=== PATIENT | male | born 1985 | race Caucasian/White ===

== ENCOUNTER 2021-07-07 22:30 | Inpatient (IN) | payer MEDICAID ==
[~2021-07-07] VITALS: Ht 172.7 cm; Wt 108.4 kg
[2021-07-07] MEDS ORDERED: MORPHINE SULFATE 4 MG/ML CPJ (NOT FOR IM USE) IV STA (23:00)
[2021-07-07] MEDS ORDERED: ONDANSETRON HCL 4MG/2ML INJ IV STA (23:00)
[2021-07-07] MEDS ORDERED: SODIUM CHLORIDE 0.9% 1,000 ML IV ONE (23:00)
[2021-07-07 23:34] LABS: BASOPHILS % 0.6 % (0.0-2.0); EOSINOPHILS % 0.7 % (0.0-5.0); HEMATOCRIT. 43.7 % (42.0-52.0); HEMOGLOBIN. 14.8 g/dL (14.0-18.0); LYMPHOCYTES % 28.6 % (20.0-50.0); MEAN CORPUSCULAR HEMOGLOBIN 27.8 pg (28.0-32.0); MEAN CORPUSCULAR VOLUME 82.1 fL (80.0-94.0); MEAN PLATELET VOLUME 8.8 fl (7.4-10.4); MONOCYTES % 5.4 % (2.0-8.0); NEUTROPHILS % 64.7 % (40.0-76.0); PLATELET 278 x1000/uL (130-400); RED BLOOD CELL COUNT 5.33 mill/uL (4.7-6.1); RED CELL DISTRIBUTION WIDTH 14.9 % (11.6-14.6)
[2021-07-07 23:36] LABS: CHLORIDE 104 mEq/L (98-107)
[2021-07-07] MEDS ORDERED: MORPHINE SULFATE 2 MG/ML CPJ (NOT FOR IM USE) IV STA (23:54)
[2021-07-08] VITALS (36 sets, daily range): BP systolic 88–164; BP diastolic 40–108
[2021-07-08] MEDS ORDERED: ENOXAPARIN 80MG/0.8ML SYR SUBCUT ONE (00:30)
[2021-07-08] MEDS ORDERED: ASPIRIN 325MG TABLET PO ONE (00:30)
[2021-07-08] MEDS ORDERED: ENOXAPARIN 100MG/ML SYR SUBCUT ONE (00:45)
[2021-07-08] MEDS ORDERED: ONDANSETRON HCL 4MG/2ML INJ IV PRN (02:00)
[2021-07-08] MEDS ORDERED: MAGNESIUM/ALUMINUM HYDROXIDE/SIMETHICONE 30ML UDC PO PRN (02:00)
[2021-07-08] MEDS ORDERED: DEXTROSE 50% WATER 50ML SYRINGE IV PRN (02:00)
[2021-07-08] MEDS ORDERED: DIPHENHYDRAMINE 50MG/ML VIAL IV PRN (02:00)
[2021-07-08] MEDS ORDERED: ZOLPIDEM TARTRATE 5MG TABLET PO PRN (02:00)
[2021-07-08] MEDS ORDERED: MORPHINE SULFATE 2 MG/ML CPJ (NOT FOR IM USE) IV PRN (02:00)
[2021-07-08] MEDS ORDERED: ACETAMINOPHEN 325MG TABLET PO PRN ×4 (02:00→16:45)
[2021-07-08] MEDS: CEPHALEXIN 250MG CAPSULE PO SCH ×4 (03:00→23:00)
[2021-07-08] MEDS ORDERED: SODIUM CHLORIDE 0.9% INJ 3ML FLUSH IVF SCH (06:00)
[2021-07-08] MEDS: OMEPRAZOLE 20MG CAPSULE EXTENDED RELEASE PO SCH ×2 (07:50→21:24)
[2021-07-08] MEDS: INSULIN LISPRO 100 UNITS/ML SUBCUT SCH ×4 (08:20→21:00)
[2021-07-08] MEDS: BLOOD SUGAR DIAGNOSTIC STRIP TEST SCH ×4 (09:00→21:00)
[2021-07-08] MEDS ORDERED: CLOPIDOGREL 75MG TABLET PO SCH (09:00)
[2021-07-08] MEDS: ASPIRIN 81MG EC TABLET PO SCH (09:00)
[2021-07-08] MEDS ORDERED: NICARDIPINE 100MCG/ML 10ML VIAL (CATH LAB) IV ONE (10:16)
[2021-07-08] MEDS ORDERED: NITROGLYCERIN 50MCG/ML 10ML VIAL (CATH LAB) IV ONE (10:16)
[2021-07-08] MEDS ORDERED: NALOXONE HCL 0.4MG/ML VIAL IV PRN (10:45)
[2021-07-08] MEDS ORDERED: HEPARIN 1000 UNITS/ML 10ML ONE (13:50)
[2021-07-08] MEDS ORDERED: IODIXANOL 320MG/ML 100 ML BOTTLE IV ONE (13:50)
[2021-07-08] MEDS ORDERED: FENTANYL CITRATE/PF 50MCG/ML 2ML VIAL ONE (13:50)
[2021-07-08] MEDS ORDERED: VERAPAMIL HCL 2.5 MG/1 ML 2ML VIAL IV ONE (13:50)
[2021-07-08] MEDS ORDERED: MIDAZOLAM HCL 2 MG/2 ML VIAL ONE (13:51)
[2021-07-08] MEDS ORDERED: LIDOCAINE HCL 1% 30ML VIAL (10MG/ML) ONE (13:59)
[2021-07-08] MEDS ORDERED: IOHEXOL-300 100 ML BOTTLE ONE (14:23)
[2021-07-08] MEDS ORDERED: EPTIFIBATIDE 100 ML IV ONE (14:44)
[2021-07-08] MEDS ORDERED: EPTIFIBATIDE 2 MG/ML 10ML VIAL IV ONE (14:45)
[2021-07-08] MEDS ORDERED: HEPARIN 5000 UNITS/ML VIAL IV PRN (15:30)
[2021-07-08] MEDS ORDERED: ATROPINE SULFATE 1MG/10ML SYR IV PRN (15:30)
[2021-07-08] MEDS ORDERED: HEPARIN 25,000 UNITS PREMIX 250 ML IV PRN (15:30)
[2021-07-08] MEDS: NITROGLYCERIN 50MG PREMIX 250 ML IV SCH (16:40)
[2021-07-08] MEDS ORDERED: NITROGLYCERIN 0.4MG TABLET SL SL PRN (16:45)
[2021-07-08] MEDS ORDERED: HEPARIN BOLUS PRN aPTT <30 IV (16:45)
[2021-07-08] MEDS ORDERED: CHLORHEXIDINE GLUCONATE 4% EXTERNAL USE TOP SCH ×2 (16:45→21:00)
[2021-07-08] MEDS ORDERED: ALPRAZOLAM 0.25 MG TABLET PO PRN (16:45)
[2021-07-08] MEDS ORDERED: HEPARIN BOLUS PRN aPTT 30-44 IV (16:45)
[2021-07-08] MEDS ORDERED: HEPARIN 60 UNITS/KG BOLUS IV SCH (16:45)
[2021-07-08] MEDS ORDERED: EPTIFIBATIDE 100 ML IV SCH (17:30)
[2021-07-08 17:37] LABS: BASOPHILS % 0.4 % (0.0-2.0); EOSINOPHILS % 1.4 % (0.0-5.0); HEMATOCRIT. 40.1 % (42.0-52.0); HEMOGLOBIN. 13.3 g/dL (14.0-18.0); LYMPHOCYTES % 30.9 % (20.0-50.0); MEAN CORPUSCULAR HEMOGLOBIN 27.6 pg (28.0-32.0); MEAN CORPUSCULAR VOLUME 83.3 fL (80.0-94.0); MEAN PLATELET VOLUME 8.8 fl (7.4-10.4); MONOCYTES % 7.5 % (2.0-8.0); NEUTROPHILS % 59.8 % (40.0-76.0); PLATELET 249 x1000/uL (130-400); RED BLOOD CELL COUNT 4.81 mill/uL (4.7-6.1); RED CELL DISTRIBUTION WIDTH 14.6 % (11.6-14.6)
[2021-07-08 17:47] LABS: CHLORIDE 108 mEq/L (98-107); PARTIAL THROMBOPLASTIN TIME 39.3 sec (23.4-31.0); PROTHROMBIN TIME 10.7 sec (9.6-11.0)
[2021-07-08] MEDS: HEPARIN 25,000 UNITS PREMIX 250 ML IV SCH ×2 (17:52→19:03)
[2021-07-08] MEDS: EPTIFIBATIDE 100 ML IV SCH (19:27)
[2021-07-08] MEDS ORDERED: ASCORBIC ACID 500 MG TABLET PO SCH (21:00)
[2021-07-08] MEDS ORDERED: ATORVASTATIN CALCIUM 40MG TABLET PO SCH (21:00)
[2021-07-08] MEDS ORDERED: BISACODYL 10MG SUPP PR PRN (21:00)
[2021-07-08] MEDS ORDERED: DOCUSATE SODIUM 100MG CAPSULE PO SCH (21:00)
[2021-07-08] MEDS: ALLOPURINOL 300 MG TABLET PO SCH (21:23)
[2021-07-08] MEDS: SODIUM CHLORIDE 0.9% INJ 3ML FLUSH IVF SCH (22:06)
[2021-07-08] MEDS ORDERED: ENOXAPARIN 40MG/0.4ML SYR SUBCUT SCH (23:00)
[2021-07-09] VITALS (65 sets, daily range): BP systolic 83–187; BP diastolic 48–150
[2021-07-09] MEDS: EPTIFIBATIDE 100 ML IV SCH (01:15)
[2021-07-09] MEDS: ALLOPURINOL 300 MG TABLET PO SCH (05:38)
[2021-07-09] MEDS: CEPHALEXIN 250MG CAPSULE PO SCH ×2 (05:39→12:00)
[2021-07-09] MEDS: CHLORHEXIDINE GLUCONATE 4% EXTERNAL USE TOP SCH ×2 (05:41→09:33)
[2021-07-09] MEDS: SODIUM CHLORIDE 0.9% INJ 3ML FLUSH IVF SCH ×3 (05:41→22:28)
[2021-07-09 06:52] LABS: CHLORIDE 109 mEq/L (98-107)
[2021-07-09] MEDS ORDERED: NICARDIPINE 40MG/200ML PREMIX 200 ML IV SCH (07:00)
[2021-07-09] MEDS ORDERED: INSULIN REGULAR (DRIP) 100 UNITS in SODIUM CHLORIDE 0.9% 99 ML IV NR (07:00)
[2021-07-09] MEDS ORDERED: DOPAMINE 400 MG PREMIX 250 ML IV NR (07:00)
[2021-07-09] MEDS ORDERED: AMINOCAPROIC ACID 5,000 MG in SODIUM CHLORIDE 0.9% 230 ML IV NR (07:00)
[2021-07-09] MEDS ORDERED: NOREPINEPHRINE 8 MG in DEXT 5% WATER 242 ML IV NR (07:00)
[2021-07-09] MEDS ORDERED: DEL NIDO ELECTROLYTE-S(PH 7.4) 1,000 ML IV NR ×2 (07:00)
[2021-07-09] MEDS ORDERED: PAPAVERINE HCL 180MG in SODIUM CHLORIDE 0.9% 24ML IV NR (07:00)
[2021-07-09] MEDS ORDERED: DOBUTAMINE 250MG PREMIX 250 ML IV NR (07:00)
[2021-07-09] MEDS ORDERED: CEFAZOLIN 2,000 MG in DEXT 5% WATER 100 ML IV NR (07:00)
[2021-07-09] MEDS ORDERED: EPINEPHRINE 5 MG in DEXT 5% WATER 245 ML IV NR (07:00)
[2021-07-09 07:26] LABS: BASOPHILS % 0.4 % (0.0-2.0); EOSINOPHILS % 1.9 % (0.0-5.0); HEMATOCRIT. 44.3 % (42.0-52.0); HEMOGLOBIN. 14.4 g/dL (14.0-18.0); LYMPHOCYTES % 41.1 % (20.0-50.0); MEAN CORPUSCULAR HEMOGLOBIN 28.1 pg (28.0-32.0); MEAN CORPUSCULAR VOLUME 86.1 fL (80.0-94.0); MEAN PLATELET VOLUME 8.9 fl (7.4-10.4); MONOCYTES % 8.6 % (2.0-8.0); PLATELET 219 x1000/uL (130-400); RED BLOOD CELL COUNT 5.14 mill/uL (4.7-6.1); RED CELL DISTRIBUTION WIDTH 14.8 % (11.6-14.6)
[2021-07-09] MEDS: BLOOD SUGAR DIAGNOSTIC STRIP TEST SCH ×14 (07:50→23:45)
[2021-07-09] MEDS: INSULIN LISPRO 100 UNITS/ML SUBCUT SCH ×2 (08:20→13:20)
[2021-07-09] MEDS: ASPIRIN 81MG EC TABLET PO SCH (09:33)
[2021-07-09] MEDS: OMEPRAZOLE 20MG CAPSULE EXTENDED RELEASE PO SCH (09:33)
[2021-07-09] MEDS ORDERED: BACITRACIN 15GM TUBE TOP ONE (09:43)
[2021-07-09] MEDS ORDERED: THROMBIN (BOVINE) 5000 UNITS/VIAL TOP ONE (09:44)
[2021-07-09] MEDS ORDERED: SODIUM CHLORIDE 0.9% INJ 10ML FLUSH IVF ONE (09:44)
[2021-07-09] MEDS ORDERED: SKIN ADHESIVE 0.7 GM EA TOP ONE (09:44)
[2021-07-09] MEDS ORDERED: POLYMYXIN B SULFATE 500000 UNITS/VIAL ONE (09:44)
[2021-07-09] MEDS ORDERED: HEPARIN 1000 UNITS/ML 10ML ONE ×3 (09:46→14:47)
[2021-07-09] MEDS ORDERED: LIDOCAINE HCL 2% 5ML SYRINGE IV ONE ×2 (09:46→16:49)
[2021-07-09] MEDS ORDERED: HEPARIN 10,000 UNITS/ML VIAL ONE ×2 (09:46→11:21)
[2021-07-09] MEDS ORDERED: CALCIUM CHLORIDE 1GM/10ML SYR IV ONE ×2 (09:46→16:49)
[2021-07-09] MEDS ORDERED: ALBUMIN HUMAN 25GM/100ML (25%) IV ONE (09:46)
[2021-07-09] MEDS ORDERED: AMINOCAPROIC ACID 250 MG/ML 20ML VIAL ONE ×2 (09:46→13:13)
[2021-07-09] MEDS ORDERED: MANNITOL 20% (20GM/100ML) BAG 500ML PREMIX IV ONE (09:46)
[2021-07-09] MEDS ORDERED: PHENYLEPHRINE HCL 10 MG/ML 1ML (IV VIAL) IV ONE (09:46)
[2021-07-09] MEDS ORDERED: SODIUM BICARBONATE 8.4% 1 MEQ/ML 50ML SYR IV ONE (09:46)
[2021-07-09] MEDS ORDERED: MAGNESIUM SULFATE 5GM/10ML VIAL IV ONE (09:46)
[2021-07-09] MEDS ORDERED: HYDRALAZINE 20MG/ML VIAL IV NR (11:00)
[2021-07-09] MEDS ORDERED: METHYLENE BLUE 50 MG/10 ML AMP IV ONE (11:22)
[2021-07-09] MEDS ORDERED: ACETAMINOPHEN 500MG TABLET ONE (11:38)
[2021-07-09] MEDS ORDERED: MIDAZOLAM HCL 2 MG/2 ML VIAL ONE (12:04)
[2021-07-09] MEDS ORDERED: ETOMIDATE 2MG/ML 10ML VIAL IV ONE (12:10)
[2021-07-09] MEDS ORDERED: ROCURONIUM BROMIDE 10MG/ML VIAL 5ML IV ONE (12:10)
[2021-07-09] MEDS ORDERED: PROPOFOL 200MG/20ML VIAL IV ONE (12:10)
[2021-07-09] MEDS ORDERED: METOCLOPRAMIDE HCL 10MG/2ML VIAL ONE ×2 (12:10→12:17)
[2021-07-09] MEDS ORDERED: FENTANYL CITRATE/PF 50MCG/ML 5ML VIAL ONE (12:16)
[2021-07-09] MEDS ORDERED: LABETALOL HCL 5MG/ML VIAL 20ML IV ONE (12:17)
[2021-07-09] MEDS ORDERED: ONDANSETRON HCL 4MG/2ML INJ ONE (12:17)
[2021-07-09] MEDS ORDERED: LIDOCAINE HCL/PF 1% 10 MG/ML 5ML VIAL ONE (12:19)
[2021-07-09] MEDS ORDERED: METOPROLOL TARTRATE 5MG/5ML VIAL IV ONE (12:34)
[2021-07-09] MEDS ORDERED: KCL 10MEQ/50ML PREMIX 100 ML IV PRN (12:45)
[2021-07-09] MEDS ORDERED: DEXTROSE 50% WATER 50ML SYRINGE IV PRN ×2 (12:45)
[2021-07-09] MEDS ORDERED: KCL 10MEQ/50ML PREMIX 200 ML IV PRN (12:45)
[2021-07-09] MEDS ORDERED: KCL 10MEQ/50ML PREMIX 150 ML IV PRN (12:45)
[2021-07-09] MEDS ORDERED: VANCOMYCIN HCL 500 MG/VIAL ONE (13:28)
[2021-07-09] MEDS ORDERED: VECURONIUM BROMIDE 10 MG/VIAL IV ONE (13:54)
[2021-07-09] MEDS ORDERED: CEFAZOLIN SODIUM 1000MG/VIAL ONE (13:54)
[2021-07-09] MEDS ORDERED: PROPOFOL 10MG/ML 100ML 100 ML IV ONE (16:49)
[2021-07-09] MEDS ORDERED: DEXTROSE 50% WATER 50ML SYRINGE IV ONE (17:16)
[2021-07-09] MEDS ORDERED: PROTAMINE SULFATE 10MG/ML VIAL 25ML IV ONE (17:22)
[2021-07-09] MEDS ORDERED: AMIODARONE HCL 50MG/ML 3ML VIAL IV ONE (17:25)
[2021-07-09] MEDS ORDERED: BUPIVACAINE HCL/PF 0.25% (2.5MG/ML) 10ML ONE ×2 (17:48→18:14)
[2021-07-09] MEDS ORDERED: HYDROMORPHONE HCL/PF 2MG/ML (OR) ONE (17:53)
[2021-07-09 18:19] LABS: CHLORIDE 104 mEq/L (98-107)
[2021-07-09 18:26] LABS: PARTIAL THROMBOPLASTIN TIME 24.8 sec (23.4-31.0); PROTHROMBIN TIME 11.2 sec (9.6-11.0)
[2021-07-09 18:31] LABS: BASOPHILS % 0.2 % (0.0-2.0); EOSINOPHILS % 1.1 % (0.0-5.0); HEMATOCRIT. 35.6 % (42.0-52.0); HEMOGLOBIN. 11.9 g/dL (14.0-18.0); LYMPHOCYTES % 17.8 % (20.0-50.0); MEAN CORPUSCULAR HEMOGLOBIN 27.6 pg (28.0-32.0); MEAN CORPUSCULAR VOLUME 82.6 fL (80.0-94.0); MONOCYTES % 2.8 % (2.0-8.0); NEUTROPHILS % 78.1 % (40.0-76.0); PLATELET 196 x1000/uL (130-400); RED BLOOD CELL COUNT 4.31 mill/uL (4.7-6.1); RED CELL DISTRIBUTION WIDTH 14.7 % (11.6-14.6)
[2021-07-09] MEDS: INSULIN REGULAR (DRIP) 100 UNITS in SODIUM CHLORIDE 0.9% 100 ML IV SCH (19:00)
[2021-07-09] MEDS ORDERED: [UNRECOGNIZED DRUG - REMARK] XX SCH (19:15)
[2021-07-09] MEDS ORDERED: ONDANSETRON HCL 4MG/2ML INJ IV PRN (19:15)
[2021-07-09] MEDS ORDERED: NITROGLYCERIN 50MG PREMIX 250 ML IV SCH (19:15)
[2021-07-09] MEDS ORDERED: ALBUMIN HUMAN 12.5G/250ML (5%) IV PRN (19:15)
[2021-07-09] MEDS ORDERED: SODIUM CHLORIDE 0.9% 500 ML IV PRN (19:15)
[2021-07-09] MEDS ORDERED: MAGNESIUM 2 G PREMIX 50 ML IV PRN (19:15)
[2021-07-09] MEDS ORDERED: MAGNESIUM SULFATE 3 GM in DEXT 5% WATER 100 ML IV PRN (19:15)
[2021-07-09] MEDS ORDERED: ACETAMINOPHEN 325MG TABLET PO PRN (19:15)
[2021-07-09 19:25] LABS: BG BASE EXCESS 0.8 mmol/L (-2.0-2.0); BG CARBOXYHEMOGLOBIN 0.1 % (0.5-1.5); BG DEOXYHEMOGLOBIN 1.1 % (0.0-5.0); BG FRACTION INSPIRED OXYGEN 100; BG HCO3 ACT 24.9 mmol/L (22.0-26.0); BG METHEMOGLOBIN 0.5 % (0.0-1.5); BG OXYGEN SATURATION 98.9 % (92.0-98.5); BG OXYHEMOGLOBIN 98.3 % (94.0-97.0); BG PCO2 38.3 mmHg (35.0-45.0); BG PH 7.431 (7.350-7.450); BG PO2 162.3 mmHg (75.0-100.0); BG SAMPLE SITE ALINE; BG TOTAL HEMOGLOBIN 14.1 g/dL (12.0-18.0); BG VENT MODE VENT - AC
[2021-07-09] MEDS: NITROGLYCERIN 50MG PREMIX 250 ML IV SCH (19:30)
[2021-07-09] MEDS: DEXT 5%/0.45% NACL 1000ML 1,000 ML IV SCH (19:39)
[2021-07-09] MEDS: DOCUSATE SODIUM 100MG CAPSULE PO SCH (20:00)
[2021-07-09 20:48] LABS: BG BASE EXCESS 1.1 mmol/L (-2.0-2.0); BG CARBOXYHEMOGLOBIN 0.4 % (0.5-1.5); BG FRACTION INSPIRED OXYGEN 80; BG HCO3 ACT 25.4 mmol/L (22.0-26.0); BG METHEMOGLOBIN 0.6 % (0.0-1.5); BG PCO2 39.4 mmHg (35.0-45.0); BG PH 7.427 (7.350-7.450); BG PO2 80.3 mmHg (75.0-100.0); BG SAMPLE SITE ALINE; BG TOTAL HEMOGLOBIN 14.7 g/dL (12.0-18.0); BG VENT MODE VENT - AC
[2021-07-09] MEDS: MAGNESIUM 1 G PREMIX 100 ML IV PRN (21:50)
[2021-07-09] MEDS ORDERED: VANCOMYCIN 1500MG in DEXTROSE 5% WATER 250ML IV SCH (22:00)
[2021-07-09] MEDS ORDERED: ALBUMIN HUMAN 12.5G/250ML (5%) IV NR (22:35)
[2021-07-09] MEDS: MAGNESIUM HYDROXIDE 400MG/5ML 30ML UDC PO SCH (22:55)
[2021-07-09] MEDS: MORPHINE SULFATE 2 MG/ML CPJ (NOT FOR IM USE) IV PRN (23:27)
[2021-07-10] VITALS (83 sets, daily range): BP systolic 0–158; BP diastolic 0–92
[2021-07-10] MEDS: BLOOD SUGAR DIAGNOSTIC STRIP TEST SCH ×24 (00:45→23:47)
[2021-07-10] MEDS: DOPAMINE 400MG/250ML PREMIX 250 ML IV PRN ×2 (01:19→08:10)
[2021-07-10 01:36] LABS: BG BASE EXCESS 0.8 mmol/L (-2.0-2.0); BG CARBOXYHEMOGLOBIN 0.3 % (0.5-1.5); BG DEOXYHEMOGLOBIN 2.2 % (0.0-5.0); BG FRACTION INSPIRED OXYGEN 70; BG HCO3 ACT 25.3 mmol/L (22.0-26.0); BG METHEMOGLOBIN 0.5 % (0.0-1.5); BG OXYGEN SATURATION 97.8 % (92.0-98.5); BG PCO2 40.3 mmHg (35.0-45.0); BG PH 7.416 (7.350-7.450); BG PO2 107.8 mmHg (75.0-100.0); BG SAMPLE SITE ALINE; BG VENT MODE VENT - SIMV
[2021-07-10 03:02] LABS: BG BASE EXCESS 0.3 mmol/L (-2.0-2.0); BG DEOXYHEMOGLOBIN 4.2 % (0.0-5.0); BG FRACTION INSPIRED OXYGEN 40; BG HCO3 ACT 23.7 mmol/L (22.0-26.0); BG METHEMOGLOBIN 0.4 % (0.0-1.5); BG OXYGEN SATURATION 95.8 % (92.0-98.5); BG OXYHEMOGLOBIN 95.4 % (94.0-97.0); BG PCO2 34.1 mmHg (35.0-45.0); BG PH 7.459 (7.350-7.450); BG PO2 80.2 mmHg (75.0-100.0); BG SAMPLE SITE ALINE; BG VENT MODE MASK - CPAP
[2021-07-10] MEDS: MAGNESIUM HYDROXIDE 400MG/5ML 30ML UDC PO SCH ×5 (03:15→18:44)
[2021-07-10] MEDS: IPRATROPIUM/ALBUTEROL 0.5-3(2.5)MG/3ML NEB HHN SCH ×5 (03:53→20:22)
[2021-07-10] MEDS: MORPHINE SULFATE 2 MG/ML CPJ (NOT FOR IM USE) IV PRN ×2 (04:08→07:46)
[2021-07-10] MEDS: OXYCODONE HCL/ACETAMINOPHEN 5/325MG TABLET PO PRN ×2 (06:00→11:08)
[2021-07-10 06:02] LABS: CHLORIDE 111 mEq/L (98-107)
[2021-07-10 06:07] LABS: PHOSPHORUS 2.9 mg/dL (2.5-4.9)
[2021-07-10] MEDS: SODIUM CHLORIDE 0.9% INJ 3ML FLUSH IVF SCH ×3 (06:19→22:00)
[2021-07-10] MEDS: VANCOMYCIN 750 MG PREMIX 150 ML IV SCH ×3 (06:22→22:00)
[2021-07-10 07:18] LABS: BG BASE EXCESS 2.1 mmol/L (-2.0-2.0); BG CARBOXYHEMOGLOBIN 0.3 % (0.5-1.5); BG DEOXYHEMOGLOBIN 3.4 % (0.0-5.0); BG FRACTION INSPIRED OXYGEN 32; BG HCO3 ACT 26.2 mmol/L (22.0-26.0); BG METHEMOGLOBIN 0.5 % (0.0-1.5); BG OXYGEN SATURATION 96.6 % (92.0-98.5); BG OXYHEMOGLOBIN 95.8 % (94.0-97.0); BG PCO2 39.2 mmHg (35.0-45.0); BG PH 7.443 (7.350-7.450); BG PO2 86.9 mmHg (75.0-100.0); BG SAMPLE SITE ALINE; BG TOTAL HEMOGLOBIN 12.6 g/dL (12.0-18.0); BG VENT MODE NASAL CANNULA
[2021-07-10 07:19] LABS: BASOPHILS % 0.4 % (0.0-2.0); HEMATOCRIT. 36.7 % (42.0-52.0); HEMOGLOBIN. 12.3 g/dL (14.0-18.0); LYMPHOCYTES % 8.5 % (20.0-50.0); MEAN CORPUSCULAR HEMOGLOBIN 27.7 pg (28.0-32.0); MEAN CORPUSCULAR VOLUME 82.7 fL (80.0-94.0); MEAN PLATELET VOLUME 9.5 fl (7.4-10.4); MONOCYTES % 11.7 % (2.0-8.0); NEUTROPHILS % 79.4 % (40.0-76.0); PLATELET 205 x1000/uL (130-400); RED BLOOD CELL COUNT 4.44 mill/uL (4.7-6.1); RED CELL DISTRIBUTION WIDTH 14.7 % (11.6-14.6)
[2021-07-10] MEDS: MAGNESIUM 1 G PREMIX 100 ML IV PRN (08:03)
[2021-07-10] MEDS: INSULIN REGULAR (DRIP) 100 UNITS in SODIUM CHLORIDE 0.9% 100 ML IV SCH (08:46)
[2021-07-10] MEDS: DOCUSATE SODIUM 100MG CAPSULE PO SCH ×2 (09:44→16:25)
[2021-07-10] MEDS: FAMOTIDINE 20MG/2ML VIAL IV SCH (09:44)
[2021-07-10] MEDS ORDERED: KETOROLAC 15MG/ML VIAL IV PRN (11:45)
[2021-07-10] MEDS ORDERED: NICARDIPINE 40MG/200ML PREMIX 200 ML IV PRN (12:00)
[2021-07-10] MEDS: METOPROLOL TARTRATE 25MG TABLET PO SCH ×2 (13:00→21:00)
[2021-07-10 14:39] LABS: *AMPHETAMINES SCREEN URINE NEGATIVE (NEGATIVE); *BARBITURATES SCREEN URINE NEGATIVE (NEGATIVE); *BENZODIAZEPINES SCREEN URINE PRESUMTIVE POSITIVE (NEGATIVE); *COCAINE SCREEN URINE NEGATIVE (NEGATIVE); CANNABINOID URINE SCREEN NEGATIVE (NEGATIVE); METHADONE URINE SCREEN NEGATIVE (NEGATIVE); OPIATES URINE SCREEN PRESUMTIVE POSITIVE (NEGATIVE)
[2021-07-10 14:40] LABS: PHENCYCLIDINE URINE SCREEN NEGATIVE (NEGATIVE)
[2021-07-10] MEDS: DEXT 5%/0.45% NACL 1000ML 1,000 ML IV SCH (16:25)
[2021-07-10 18:47] LABS: BASOPHILS % 0.4 % (0.0-2.0); EOSINOPHILS % 0.4 % (0.0-5.0); HEMATOCRIT. 35.8 % (42.0-52.0); HEMOGLOBIN. 11.8 g/dL (14.0-18.0); LYMPHOCYTES % 18.5 % (20.0-50.0); MEAN CORPUSCULAR HEMOGLOBIN 28.1 pg (28.0-32.0); MEAN CORPUSCULAR VOLUME 85.1 fL (80.0-94.0); NEUTROPHILS % 70.7 % (40.0-76.0); PLATELET 167 x1000/uL (130-400); RED BLOOD CELL COUNT 4.21 mill/uL (4.7-6.1); RED CELL DISTRIBUTION WIDTH 14.8 % (11.6-14.6)
[2021-07-10 18:53] LABS: CHLORIDE 104 mEq/L (98-107)
[2021-07-10 18:59] LABS: PHOSPHORUS 3.4 mg/dL (2.5-4.9)
[2021-07-10] MEDS ORDERED: ALBUMIN HUMAN 12.5G/250ML (5%) IV SCH (20:30)
[2021-07-10] MEDS ORDERED: KETOROLAC 15MG/ML VIAL IV SCH (20:30)
[2021-07-10] MEDS: ATORVASTATIN CALCIUM 40MG TABLET PO SCH (22:00)
[2021-07-11] VITALS (51 sets, daily range): BP systolic 92–177; BP diastolic 50–131
[2021-07-11] MEDS: IPRATROPIUM/ALBUTEROL 0.5-3(2.5)MG/3ML NEB HHN SCH ×5 (00:33→20:00)
[2021-07-11] MEDS: BLOOD SUGAR DIAGNOSTIC STRIP TEST SCH ×24 (01:17→23:45)
[2021-07-11] MEDS: INSULIN REGULAR (DRIP) 100 UNITS in SODIUM CHLORIDE 0.9% 100 ML IV SCH (02:18)
[2021-07-11] MEDS: OXYCODONE HCL/ACETAMINOPHEN 5/325MG TABLET PO PRN ×2 (04:50→16:38)
[2021-07-11 06:01] LABS: BASOPHILS % 0.3 % (0.0-2.0); EOSINOPHILS % 1.1 % (0.0-5.0); HEMATOCRIT. 35.3 % (42.0-52.0); HEMOGLOBIN. 11.7 g/dL (14.0-18.0); LYMPHOCYTES % 15.5 % (20.0-50.0); MEAN CORPUSCULAR VOLUME 84.4 fL (80.0-94.0); MEAN PLATELET VOLUME 8.9 fl (7.4-10.4); MONOCYTES % 7.5 % (2.0-8.0); NEUTROPHILS % 75.6 % (40.0-76.0); PLATELET 180 x1000/uL (130-400); RED BLOOD CELL COUNT 4.18 mill/uL (4.7-6.1); RED CELL DISTRIBUTION WIDTH 14.8 % (11.6-14.6)
[2021-07-11 06:12] LABS: CHLORIDE 101 mEq/L (98-107)
[2021-07-11 06:19] LABS: PHOSPHORUS 3.5 mg/dL (2.5-4.9)
[2021-07-11] MEDS: MORPHINE SULFATE 2 MG/ML CPJ (NOT FOR IM USE) IV PRN ×4 (06:21→22:36)
[2021-07-11] MEDS: VANCOMYCIN 750 MG PREMIX 150 ML IV SCH ×2 (06:21→15:13)
[2021-07-11] MEDS: SODIUM CHLORIDE 0.9% INJ 3ML FLUSH IVF SCH ×2 (06:42→14:29)
[2021-07-11] MEDS: FAMOTIDINE 20MG/2ML VIAL IV SCH (08:15)
[2021-07-11] MEDS: DOCUSATE SODIUM 100MG CAPSULE PO SCH ×2 (08:15→16:37)
[2021-07-11] MEDS: ASPIRIN 81MG TABLET PO SCH (08:16)
[2021-07-11] MEDS: METOPROLOL TARTRATE 25MG TABLET PO SCH ×2 (08:16→22:36)
[2021-07-11] MEDS: DEXT 5%/0.45% NACL 1000ML 1,000 ML IV SCH ×2 (10:58→13:07)
[2021-07-11] MEDS ORDERED: HYDROMORPHONE HCL/PF 2MG/ML CPJ IV NR (12:45)
[2021-07-11] MEDS ORDERED: KETOROLAC 15MG/ML VIAL IV NR (12:45)
[2021-07-11] MEDS: CLOPIDOGREL 75MG TABLET PO SCH (13:08)
[2021-07-11] MEDS: BENAZEPRIL 5MG TABLET PO SCH (15:13)
[2021-07-11] MEDS: ATORVASTATIN CALCIUM 40MG TABLET PO SCH (22:36)
[2021-07-11] MEDS ORDERED: NICARDIPINE 50 MG in SODIUM CHLORIDE 0.9% 250 ML IV PRN (23:45)
[2021-07-12] VITALS (47 sets, daily range): BP systolic 123–182; BP diastolic 75–122
[2021-07-12] MEDS: BLOOD SUGAR DIAGNOSTIC STRIP TEST SCH ×17 (00:45→23:45)
[2021-07-12] MEDS: MORPHINE SULFATE 2 MG/ML CPJ (NOT FOR IM USE) IV PRN ×5 (02:46→23:13)
[2021-07-12] MEDS: OXYCODONE HCL/ACETAMINOPHEN 5/325MG TABLET PO PRN (05:48)
[2021-07-12 05:53] LABS: BASOPHILS % 0.4 % (0.0-2.0); EOSINOPHILS % 2.9 % (0.0-5.0); HEMATOCRIT. 34.5 % (42.0-52.0); HEMOGLOBIN. 11.2 g/dL (14.0-18.0); LYMPHOCYTES % 22.1 % (20.0-50.0); MEAN CORPUSCULAR HEMOGLOBIN 27.2 pg (28.0-32.0); MEAN PLATELET VOLUME 8.4 fl (7.4-10.4); MONOCYTES % 10.4 % (2.0-8.0); NEUTROPHILS % 64.2 % (40.0-76.0); PLATELET 232 x1000/uL (130-400); RED CELL DISTRIBUTION WIDTH 14.4 % (11.6-14.6)
[2021-07-12 06:02] LABS: CHLORIDE 103 mEq/L (98-107)
[2021-07-12] MEDS: IPRATROPIUM/ALBUTEROL 0.5-3(2.5)MG/3ML NEB HHN SCH ×5 (08:00→20:56)
[2021-07-12] MEDS: BENAZEPRIL 5MG TABLET PO SCH (10:02)
[2021-07-12] MEDS: DOCUSATE SODIUM 100MG CAPSULE PO SCH ×2 (10:02→17:23)
[2021-07-12] MEDS: ASPIRIN 81MG TABLET PO SCH (10:02)
[2021-07-12] MEDS: METOPROLOL TARTRATE 25MG TABLET PO SCH ×2 (10:02→21:09)
[2021-07-12] MEDS: FAMOTIDINE 20MG/2ML VIAL IV SCH (10:02)
[2021-07-12] MEDS: CLOPIDOGREL 75MG TABLET PO SCH (10:02)
[2021-07-12] MEDS: INSULIN REGULAR (DRIP) 100 UNITS in SODIUM CHLORIDE 0.9% 100 ML IV SCH (12:48)
[2021-07-12] MEDS: DEXT 5%/0.45% NACL 1000ML 1,000 ML IV SCH (13:13)
[2021-07-12] MEDS: ATORVASTATIN CALCIUM 40MG TABLET PO SCH (21:09)
[2021-07-13] VITALS (32 sets, daily range): BP systolic 121–174; BP diastolic 74–119
[2021-07-13] MEDS: BLOOD SUGAR DIAGNOSTIC STRIP TEST SCH ×9 (00:45→21:05)
[2021-07-13] MEDS: OXYCODONE HCL/ACETAMINOPHEN 5/325MG TABLET PO PRN ×3 (02:15→21:04)
[2021-07-13] MEDS: IPRATROPIUM/ALBUTEROL 0.5-3(2.5)MG/3ML NEB HHN SCH ×4 (04:32→21:10)
[2021-07-13] MEDS: MORPHINE SULFATE 2 MG/ML CPJ (NOT FOR IM USE) IV PRN ×3 (04:45→09:36)
[2021-07-13 06:25] LABS: BASOPHILS % 0.4 % (0.0-2.0); EOSINOPHILS % 3.9 % (0.0-5.0); HEMATOCRIT. 37.4 % (42.0-52.0); HEMOGLOBIN. 12.4 g/dL (14.0-18.0); LYMPHOCYTES % 25.5 % (20.0-50.0); MEAN CORPUSCULAR VOLUME 84.5 fL (80.0-94.0); MEAN PLATELET VOLUME 8.2 fl (7.4-10.4); MONOCYTES % 9.1 % (2.0-8.0); NEUTROPHILS % 61.1 % (40.0-76.0); PLATELET 284 x1000/uL (130-400); RED BLOOD CELL COUNT 4.43 mill/uL (4.7-6.1); RED CELL DISTRIBUTION WIDTH 14.3 % (11.6-14.6)
[2021-07-13 07:19] LABS: CHLORIDE 106 mEq/L (98-107)
[2021-07-13] MEDS: DOCUSATE SODIUM 100MG CAPSULE PO SCH ×2 (09:35→17:53)
[2021-07-13] MEDS: CLOPIDOGREL 75MG TABLET PO SCH (09:35)
[2021-07-13] MEDS: ASPIRIN 81MG TABLET PO SCH (09:35)
[2021-07-13] MEDS: FAMOTIDINE 20MG/2ML VIAL IV SCH (09:35)
[2021-07-13] MEDS: METOPROLOL TARTRATE 25MG TABLET PO SCH (09:35)
[2021-07-13] MEDS: BENAZEPRIL 5MG TABLET PO SCH (09:35)
[2021-07-13] MEDS ORDERED: DEXTROSE 50% WATER 50ML SYRINGE IV PRN (12:00)
[2021-07-13] MEDS: INSULIN LISPRO 100 UNITS/ML SUBCUT SCH ×3 (13:20→21:00)
[2021-07-13] MEDS: CLONIDINE 0.1MG TABLET PO PRN ×2 (14:33→21:04)
[2021-07-13] MEDS: METOPROLOL TARTRATE 50MG TABLET PO SCH (21:05)
[2021-07-13] MEDS: ATORVASTATIN CALCIUM 40MG TABLET PO SCH (21:05)
[2021-07-14] VITALS (9 sets, daily range): BP systolic 132–168; BP diastolic 70–108
[2021-07-14] MEDS: OXYCODONE HCL/ACETAMINOPHEN 5/325MG TABLET PO PRN ×2 (00:42→08:45)
[2021-07-14] MEDS: IPRATROPIUM/ALBUTEROL 0.5-3(2.5)MG/3ML NEB HHN SCH ×2 (04:00)
[2021-07-14] MEDS: INSULIN LISPRO 100 UNITS/ML SUBCUT SCH ×2 (06:29→11:09)
[2021-07-14] MEDS: BLOOD SUGAR DIAGNOSTIC STRIP TEST SCH ×2 (06:29→11:09)
[2021-07-14] MEDS: METOPROLOL TARTRATE 50MG TABLET PO SCH (08:37)
[2021-07-14] MEDS: DOCUSATE SODIUM 100MG CAPSULE PO SCH (08:38)
[2021-07-14] MEDS: CLOPIDOGREL 75MG TABLET PO SCH (08:38)
[2021-07-14] MEDS: ASPIRIN 81MG TABLET PO SCH (08:38)
[2021-07-14] MEDS: FAMOTIDINE 20MG/2ML VIAL IV SCH (08:38)
[2021-07-14] MEDS ORDERED: BENAZEPRIL 10MG TABLET PO SCH (09:00)
[2021-07-14] MEDS ORDERED: BENAZEPRIL 5MG TABLET PO SCH (09:00)
[2021-07-15] MEDS ORDERED: FAMOTIDINE 20MG TABLET PO SCH (09:00)
== END 2021-07-14 15:45 | disposition home or self-care (01) | DRG 165 ==
LOC: ER 22:30 → 8WST 07-08 02:21 → ENRESERV 07-08 07:14 → CVICU 07-08 15:57 → 3WST 07-13 19:53
PROVIDERS: ADMIT Internal Medicine; ATTEND Internal Medicine
PROC: 4A023N7 Measurement of Cardiac Sampling and Pressure, Left Heart, Percutaneous Approach (ICD-10-PCS; 2021-07-08)
PROC: B211YZZ Fluoroscopy of Multiple Coronary Arteries using Other Contrast (ICD-10-PCS; 2021-07-08)
PROC: 021309W Bypass Coronary Artery, Four or More Arteries from Aorta with Autologous Venous Tissue, Open Approach (ICD-10-PCS; principal; 2021-07-09)
PROC: 02100Z9 Bypass Coronary Artery, One Artery from Left Internal Mammary, Open Approach (ICD-10-PCS; 2021-07-09)
PROC: 5A1221Z Performance of Cardiac Output, Continuous (ICD-10-PCS; 2021-07-09)
PROC: 06BP4ZZ Excision of Right Saphenous Vein, Percutaneous Endoscopic Approach (ICD-10-PCS; 2021-07-09)
PROC: B24BZZ4 Ultrasonography of Heart with Aorta, Transesophageal (ICD-10-PCS; 2021-07-09)
PROC: 0W9B30Z Drainage of Left Pleural Cavity with Drainage Device, Percutaneous Approach (ICD-10-PCS; 2021-07-09)
PROC: 5A1935Z Respiratory Ventilation, Less than 24 Consecutive Hours (ICD-10-PCS; 2021-07-09)
DX: I21.4 Non-ST elevation (NSTEMI) myocardial infarction (principal); E66.01 Morbid (severe) obesity due to excess calories; Z68.36 Body mass index [BMI] 36.0-36.9, adult; E11.65 Type 2 diabetes mellitus with hyperglycemia; E78.5 Hyperlipidemia, unspecified; I16.0 Hypertensive urgency; F17.210 Nicotine dependence, cigarettes, uncomplicated; R74.01 Elevation of levels of liver transaminase levels; Z20.822 Contact with and (suspected) exposure to COVID-19; I25.10 Atherosclerotic heart disease of native coronary artery without angina pectoris; Z60.2 Problems related to living alone; Z95.1 Presence of aortocoronary bypass graft; Z56.0 Unemployment, unspecified; Z59.02 Unsheltered homelessness; Z83.3 Family history of diabetes mellitus; Z82.49 Family history of ischemic heart disease and other diseases of the circulatory system; Z79.02 Long term (current) use of antithrombotics/antiplatelets; Z79.82 Long term (current) use of aspirin; Z79.899 Other long term (current) drug therapy
CPT/HCPCS: 36415; 36600; 71045; 80048; 80053; 80061; 80305; 82375; 82805; 82962; 83036; 83735; 84100; 84132; 84484; 85025; 85347; 85379; 85384; 86850; 86900; 86920; 87070; 87426; 93005; 93306; 93458; 93880; 93970; 94003; 94640; 97110; 97116; 97162; 97166; 97530; 97535; 99291; C1725; C1729; C1751; C1758; C1769; C1887; C1893; J0282; J0360; J0690; J1170; J1250; J1265; J1327; J1644; J1650; J1815; J1885; J2250; J2270; J2370; J2405; J2440; J2704; J2720; J2765; J3010; J3370; J3475; J3490; J7030; J7040; J7050; J7060; L3908; P9041; P9047; Q9967; Q9968